=== PATIENT | male | born 1975 | race Caucasian/White ===

== ENCOUNTER → 2021-03-28 | Day surgery (SDC) | payer OTHER ==
[~2021-03-28] VITALS: Ht 177.8 cm; Wt 83.9 kg
[~2021-03-28] MED LIST: ACETAMINOPHEN500 M1 PO; ANTIVERT25 MG PO; COLACE100 MG PO; LEXAPRO 10MG TA10 MG PO; MOTRIN600 MG PO; MULTIVITAMIN1 EACH PO; OXY-IR 5MG5 MG PO; PERCOCET 5-3251 EACH PO; STRATTERA40 MG PO; SUPER B COMPLE1 EAC1 PO; XARELTO20 MG PO
== END | disposition home or self-care (01) ==
LOC: FAS 06:30
DX: K40.90 Unilateral inguinal hernia, without obstruction or gangrene, not specified as recurrent (principal); Z72.89 Other problems related to lifestyle
CPT/HCPCS: J0690; J1644; J1885; J2250; J2405; J2704; J3010; J7120